=== PATIENT | female | born 1990 | race Caucasian/White ===

== ENCOUNTER 2019-03-17 14:52 | Inpatient (IN) | payer BC, OTHER ==
[2019-03-17] MEDS ORDERED: ACETAMINOPHEN 1000 MG/100 ML VIAL (NON FORMULARY) IVPB ONE (15:22)
[2019-03-17] MEDS ORDERED: LACTATED RINGERS SOLUTION 1000 ML INFUS.BAG IV ONE (15:22)
--- NOTE | 2019-03-17 15:24 | PDOC ---
Documentation entered by Wilmer Simon SCRIBE, acting as scribe for Kelley Nicholas DO. Kelley Nicholas DO: This documentation has been prepared by the Alfred guy Daniel, SCRIBE, under my direction and personally reviewed by me in its entirety. I confirm that the documentation accurately reflects all work, treatment, procedures, and medical decision making performed by me. History of Present Illness - General Chief Complaint: Syncope/Near Syncope Stated Complaint: SYNCOPE, LAC TO NOSE History Source: Patient Exam Limitations: No Limitations - History of Present Illness Initial Comments: 03/17/19 15:33 The patient is a 28 year old female with a past medical history of GERD here today for evaluation of a syncopal episode. 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 She reports waking up around 1 AM today and had the urge to defecate but states that there was very little diarrhea this time. She reports standing up to get out of the bathroom and the next thing she remembers is waking up on the ground. She notes a laceration to her nose, left knee pain that is worse with walking, and biting her lip. Patient attributes her diarrhea to almond milk that is past its expiration date and also notes some abdominal cramping. Patient denies headache, lightheadedness. Denies fever, chills. Denies chest pain, shortness of breath. Denies nausea, vomiting. Allergies: NKA PCP: Molly Cedillo Past History - Past Medical History Allergies/Adverse Reactions: Allergies Allergy/AdvReac Type Severity Reaction Status Date / Time No Known Allergies Allergy Verified 03/17/19 15:03 Home Medications: Ambulatory Orders Famotidine [Pepcid -] 40 mg PO DAILY 03/17/19 - Immunization History Immunization Up to Date: Yes - Psycho Social/Smoking Cessation Hx Smoking Status: No Smoking History: Never smoked Have you smoked in the past 12 months: No Number of Cigarettes Smoked Daily: 0 Hx Alcohol Use: No Drug/Substance Use Hx: No Substance Use Type: None Hx Substance Use Treatment: No Review of Systems - Review of Systems Able to Perform ROS?: Yes Comments:: 03/17/19 15:33 GENERAL/CONSTITUTIONAL: No fever or chills. No weakness. HEAD, EYES, EARS, NOSE AND THROAT: No change in vision. No ear pain or discharge. No sore throat. GASTROINTESTINAL: No nausea, vomiting, diarrhea or constipation. GENITOURINARY: No dysuria, frequency, or change in urination. CARDIOVASCULAR: No chest pain or shortness of breath. RESPIRATORY: No cough, wheezing, or hemoptysis. MUSCULOSKELETAL: +left knee pain. No muscle swelling or pain. No neck or back pain. SKIN: +laceration to nose. No rash NEUROLOGIC: No headache, vertigo, loss of consciousness, or change in strength/ sensation. ENDOCRINE: No increased thirst. No abnormal weight change. HEMATOLOGIC/LYMPHATIC: No anemia, easy bleeding, or history of blood clots. ALLERGIC/IMMUNOLOGIC: No hives or skin allergy. *Physical Exam - Vital Signs Last Vital Signs Temp Pulse Resp BP Pulse Ox 97.8 F 98 H 18 122/77 100 03/17/19 14:52 03/17/19 14:52 03/17/19 14:52 03/17/19 14:52 03/17/19 14:52 - Physical Exam 03/17/19 15:34 Constitutional: Awake, alert, oriented. No acute distress. Head: Normocephalic. Atraumatic Eyes: PERRL. EOMI. Conjunctivae are not pale. ENT: Mucous membranes are moist and intact. Posterior pharynx without exudates or erythema. Uvula midline. Neck: Supple. Full ROM. No lymphadenopathy. Cardiovascular: +tachycardia. Regular rhythm. S1, S2 regular. Distal pulses are 2+ and symmetric. Pulmonary/Chest: No evidence of respiratory distress. Clear to auscultation bilaterally No wheezing, rales or rhonchi. Abdominal: Soft and non-distended. There is no tenderness. No rebound, guarding or rigidity. No organomegaly. No palpable masses. Good bowel sounds. Back: No CVA tenderness. Musculoskeletal: No edema. No cyanosis. No clubbing. Full range of motion in all extremities. Nocalf tenderness. Radial/pedal pulses are intact and 2+ bilaterally Skin: +jagged less than 1 cm laceration to the nose. Skin is warm and dry. No petechiae. No purpura. Neurological: Alert and oriented to person, place, and time. Cranial nerves II -XII are grossly intact. Normal speech. Strength is grossly symmetric. No sensory deficits. Psychiatric: Good eye contact. Normal interaction, affect and behavior. Procedures - Laceration/Wound Repair Anterior Nose Wound Length: to 2.5 cm Wound Explored: clean Wound's Depth, Shape: superficial Irrigated w/ Saline: Yes Wound Repaired With: Dermabond Sterile Dressing Applied: Yes Progress: 03/17/19 16:22 pt tolerated the procedure well Heart Score/ECG Review - ECG Intrepretation Comment:: 03/17/19 15:23 sinus at 97, nl axis, nl interval, no acute st/t wave findings ED Treatment Course - LABORATORY CBC & Chemistry Diagram: 03/17/19 15:23 03/17/19 15:23 - RADIOLOGY Radiology Studies Ordered: Category Date Time Status HEAD CT WITHOUT CONTRAST [CT] Stat CT Scan 03/17/19 15:21 Ordered CHEST PA & LAT [RAD] Stat Radiology 03/17/19 15:21 Ordered Medical Decision Making - Medical Decision Making 03/17/19 15:35 a/p: 28yo female with a syncopal episode resulting in a nasal lac -pt states diarrhea and abd cramping after drinking a protein/almond milk smoothie overnight and a salad -syncope after getting up from the toilet -nasal lac - no active bleeding -pt tachy and + orthostatic vs and symptomatic with standing -will send labs, head ct, lac repair with dermabond -will monitor on tele, ekg -ivf hydration -tetanus utd 03/17/19 16:23 upreg neg 03/17/19 17:54 pt with orthostatic hypotension pt with rhabdo states she did her legs at the gym a few days ago pt with syncope and closed head injury microblog sent to [facility] for admission re-eval: pt states feeling better still with mild tachy at 107 bp stable ivf hydration running will admit for further eval 03/17/19 18:35 case discussed with Mayela Dorantes who accepts pt to service Discharge - Discharge Information Problems reviewed: Yes Clinical Impression/Diagnosis: Rhabdomyolysis, Syncope, Nasal laceration, Closed head injury, Dehydration Condition: Guarded - Admission Yes - Follow up/Referral Referrals: Molly Cedillo MD [Primary Care Provider] - - Patient Discharge Instructions - Post Discharge Activity
[2019-03-17] MEDS ORDERED: SODIUM CHLORIDE 0.9% 1000 ML INFUS.BAG IV ONE ×2 (15:34→17:54)
[2019-03-17] MEDS ORDERED: ACETAMINOPHEN INJECTION 100 ML IVPB ONE (15:34)
[2019-03-17 15:49] LABS: HEMATOCRIT 42.1 % (32.4-45.2); HEMOGLOBIN 13.9 GM/dl (10.7-15.3); MCH 29.1 pg (25.7-33.7); MEAN CELL VOLUME 88.2 fl (80-96); MEAN PLT VOLUME 8.9 fl (7.5-11.1); PLATELET COUNT 192 K/MM3 (134-434); RBC 4.77 M/mm3 (3.60-5.2); RDW 12.3 % (11.6-15.6); WHITE BLOOD COUNT 11.1 K/mm3 (4.0-10.8)
[2019-03-17 16:35] LABS: ALBUMIN 4.7 g/dl (3.4-5.0); BILIRUBIN,TOTAL 0.9 mg/dl (0.2-1); CALCIUM 9.3 mg/dl (8.5-10); CREATININE 0.7 mg/dl (0.55-1.3); MAGNESIUM 1.7 mg/dL (1.8-2.4); TOT PROT 7.8 g/dl (6.4-8.2)
[2019-03-17] MEDS ORDERED: MAGNESIUM SULF 50% (8.12 MEQ/2 ML-1 GM VIAL) IVPB ONE ×2 (19:09→23:25)
[2019-03-17] MEDS ORDERED: MAGNESIUM 1GM/D5W - 1 GM/100 ML IVPB IVPB ONE (19:14)
[2019-03-17] MEDS ORDERED: SODIUM CHLORIDE 1,000 ML IV SCH (19:15)
[2019-03-17 19:18] LABS: PLATELET ESTIMATE ADEQUATE
[2019-03-17 22:28] VITALS: BMI 25.7
--- NOTE | 2019-03-17 23:09 | HP ---
CHIEF COMPLAINT: Syncope PCP: Dr. Molly Cedillo HISTORY OF PRESENT ILLNESS: 28 year-old female with a PMH significant for GERD presented to the ED following a syncopal episode. 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 Within about 30 minutes she had an upset stomach and cramping. She had several episodes of diarrhea. She went to sleep and awoke having the need to have a BM. She stood up from the toilet and the next thing she remembered was waking up on the floor. She had small lacerations to her nose and lip and there was blood pooled on the floor. She thinks she lost consciousness for several minutes. Three days ago patient did a vigorous leg workout at the gym after a long period of not exercising. 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[employer]; to [employer], no children Smoking: never Alcohol: no Drugs: no Family history: sister Type I IDDM, father and mother a&w Allergies No Known Allergies Allergy (Verified 03/17/19 15:03) HOME MEDICATIONS: Home Medications Medication Instructions Recorded Famotidine [Pepcid -] 40 mg PO DAILY 03/17/19 REVIEW OF SYSTEMS CONSTITUTIONAL: Absent: fever, chills, diaphoresis, generalized weakness, malaise, loss of appetite, weight change HEENT: Absent: rhinorrhea, nasal congestion, throat pain, throat swelling, difficulty swallowing, mouth swelling, ear pain, eye pain, visual changes CARDIOVASCULAR: +syncope Absent: chest pain, palpitations, irregular heart rate, lightheadedness, peripheral edema RESPIRATORY: Absent: cough, shortness of breath, dyspnea with exertion, orthopnea, wheezing, stridor, hemoptysis GASTROINTESTINAL: +abdominal cramping, diarrhea Absent: abdominal distension, nausea, vomiting, constipation, melena, hematochezia GENITOURINARY: Absent: dysuria, frequency, urgency, hesitancy, hematuria, flank pain, genital pain MUSCULOSKELETAL: Absent: myalgia, arthralgia, joint swelling, back pain, neck pain SKIN: Absent: rash, itching, pallor HEMATOLOGIC/IMMUNOLOGIC: Absent: easy bleeding, easy bruising, lymphadenopathy, frequent infections ENDOCRINE: Absent: unexplained weight gain, unexplained weight loss, heat intolerance, cold intolerance NEUROLOGIC: Absent: headache, focal weakness or paresthesias, dizziness, unsteady gait, seizure, mental status changes, bladder or bowel incontinence PSYCHIATRIC: Absent: anxiety, depression, suicidal or homicidal ideation, hallucinations. PHYSICAL EXAMINATION Vital Signs - 24 hr 03/17/19 03/17/19 03/17/19 14:52 15:39 18:58 Temperature 97.8 F Pulse Rate 98 H Pulse Rate [ 79 Left Apical] Pulse Rate [ 145 H Left side Standing] Pulse Rate [ 115 H Left side Supine] Respiratory 18 16 Rate Blood Pressure 122/77 Blood Pressure 122/89 [Left side Standing] Blood Pressure 117/82 [Left side Supine] Blood Pressure 117/73 [Right Arm] O2 Sat by Pulse 100 98 Oximetry (%) 03/17/19 03/17/19 21:00 22:07 Temperature 98.6 F Pulse Rate 101 H Pulse Rate [ 89 Left Apical] Pulse Rate [ Left side Standing] Pulse Rate [ Left side Supine] Respiratory 18 17 Rate Blood Pressure 114/71 Blood Pressure [Left side Standing] Blood Pressure [Left side Supine] Blood Pressure 101/68 [Right Arm] O2 Sat by Pulse 99 98 Oximetry (%) GENERAL: Awake, alert, and fully oriented, in no acute distress. HEAD: Normal with no signs of trauma. EYES: Pupils equal, round and reactive to light, extraocular movements intact, sclera anicteric, conjunctiva clear. EARS, NOSE, THROAT: Ears normal, nares patent, oropharynx clear without exudates. Moist mucous membranes. LUNGS: Breath sounds equal, clear to auscultation bilaterally. No wheezes, and no crackles. No accessory muscle use. HEART: Regular rate and rhythm, normal S1 and S2 ABDOMEN: Soft, nontender, not distended MUSCULOSKELETAL: Normal range of motion at all joints. No bony deformities or tenderness. No CVA tenderness. UPPER EXTREMITIES: 2+ pulses, warm, well-perfused. No cyanosis. No clubbing. No peripheral edema. LOWER EXTREMITIES: 2+ pulses, warm, well-perfused. No calf tenderness. No peripheral edema. NEUROLOGICAL: Cranial nerves II-XII intact. Normal speech. Laboratory Results - last 24 hr 03/17/19 03/17/1903/17/19 15:23 15:23 15:23 WBC 11.1 H RBC 4.77 Hgb 13.9 Hct 42.1 MCV 88.2 MCH 29.1 MCHC 33.0 RDW 12.3 Plt Count 192 MPV 8.9 Absolute Neuts (auto) 10.2 Neutrophils % No Result Required. Neutrophils % (Manual) 97.0 H* Lymphocytes % No Result Required. Lymphocytes % (Manual) 3.0 L Platelet Estimate Adequate Sodium 137 Potassium 4.0 Chloride 100 Carbon Dioxide 26 Anion Gap 11 BUN 12.0 Creatinine 0.7 Est GFR (CKD-EPI)AfAm 134.75 Est GFR (CKD-EPI)NonAf 116.26 Random Glucose 114 H Calcium 9.3 Magnesium 1.7 L Total Bilirubin 0.9 AST 199 H ALT 65 H Alkaline Phosphatase 51 Creatine Kinase 21031 H Creatine Kinase Index 0.1 CK-MB (CK-2) 24.0 H Troponin I < 0.03 Total Protein 7.8 Albumin 4.7 Lipase Urine Color Urine Appearance Urine pH Urine Protein Urine Glucose (UA) Urine Ketones Urine Blood Urine Nitrite Urine Bilirubin Urine Urobilinogen Ur Leukocyte Esterase Urine RBC Urine WBC Urine Bacteria Urine HCG, Qual 03/17/19 03/17/19 03/17/19 15:30 15:30 15:30 WBC RBC Hgb Hct MCV MCH MCHC RDW Plt Count MPV Absolute Neuts (auto) Neutrophils % Neutrophils % (Manual) Lymphocytes % Lymphocytes % (Manual) Platelet Estimate Sodium Potassium Chloride Carbon Dioxide Anion Gap BUN Creatinine Est GFR (CKD-EPI)AfAm Est GFR (CKD-EPI)NonAf Random Glucose Calcium Magnesium Total Bilirubin AST ALT Alkaline Phosphatase Creatine Kinase Creatine Kinase Index CK-MB (CK-2) Troponin I Total Protein Albumin Lipase 160 Urine Color Yellow Urine Appearance Clear Urine pH >= 9.0 H Urine Protein 1+ H Urine Glucose (UA) Negative Urine Ketones 3+ H Urine Blood Trace-intact Urine Nitrite Negative Urine Bilirubin Negative Urine Urobilinogen 0.2 Ur Leukocyte Esterase Negative Urine RBC 2-5 Urine WBC 0-2 Urine Bacteria Few Urine HCG, Qual Negative ASSESSMENT/PLAN: 28 year-old female with a PMH significant for GERD. Admitted for a syncopal episode and on admission found to have rhabdomyolysis. Rhabdomyolysis --multifactorial etiology: low PO intake, vigourous exercise, GI losses after drinking spoiled almond milk --CPK 12,660 --resuscitated 3L in ED, continue NS@250mL/hr --strict I&Os --monitor renal function closely --renal consult placed GERD --Pepcid FEN Fluids: NS@250mL/hr Electrolytes: replete as indicated Nutrition: regular DVT prophylaxis: TEDs, oob, ambulation Dispo: continues to require inpatient care. Full code. Visit type - Emergency Visit Emergency Visit: Yes ED Registration Date: 03/17/19 Care time: The patient presented to the Emergency Department on the above date and was hospitalized for further evaluation of their emergent condition. - New Patient This patient is new to me today: Yes Date on this admission: 03/18/19 - Critical Care Critical Care patient: No
[2019-03-17] MEDS: ACETAMINOPHEN 325 MG TABLET (FP) PO PRN (23:31)
[2019-03-18] MEDS ORDERED: MAGNESIUM SULF 50% (8.12 MEQ/2 ML-1 GM VIAL) ONE (00:19)
[2019-03-18] MEDS: ACETAMINOPHEN 325 MG TABLET (FP) PO PRN ×2 (05:23→18:01)
--- NOTE | 2019-03-18 07:17 | PN ---
Physical Exam: SUBJECTIVE: Patient seen and examined OBJECTIVE: Vital Signs Period Temp Pulse Resp BP Sys/Bishop Pulse Ox Last 24 Hr 97.8 F-100.6 F 79-145 16-18 101-122/68-89 97-100 GENERAL: The patient is awake, alert, and fully oriented, in no acute distress. LUNGS: Breath sounds equal, clear to auscultation bilaterally, no wheezes, no crackles, no accessory muscle use. HEART: Regular rate and rhythm, S1, S2 without murmur, rub or gallop. ABDOMEN: Soft, nontender, nondistended EXTREMITIES: 2+ pulses, warm, well-perfused, no edema. NEUROLOGICAL: Cranial nerves II through XII grossly intact. Normal speech Laboratory Results - last 24 hr 03/17/19 03/17/19 03/17/19 15:23 15:23 15:23 WBC 11.1 H RBC 4.77 Hgb 13.9 Hct 42.1 MCV 88.2 MCH 29.1 MCHC 33.0 RDW 12.3 Plt Count 192 MPV 8.9 Absolute Neuts (auto) 10.2 Neutrophils % No Result Required. Neutrophils % (Manual) 97.0 H* Lymphocytes % No Result Required. Lymphocytes % (Manual) 3.0 L Platelet Estimate Adequate Sodium 137 Potassium 4.0 Chloride 100 Carbon Dioxide 26 Anion Gap 11 BUN 12.0 Creatinine 0.7 Est GFR (CKD-EPI)AfAm 134.75 Est GFR (CKD-EPI)NonAf 116.26 Random Glucose 114 H Calcium 9.3 Magnesium 1.7 L Total Bilirubin 0.9 AST 199 H ALT 65 H Alkaline Phosphatase 51 Creatine Kinase 16583 H Creatine Kinase Index 0.1 CK-MB (CK-2) 24.0 H Troponin I < 0.03 Total Protein 7.8 Albumin 4.7 Lipase Urine Color Urine Appearance Urine pH Urine Protein Urine Glucose (UA) Urine Ketones Urine Blood Urine Nitrite Urine Bilirubin Urine Urobilinogen Ur Leukocyte Esterase Urine RBC Urine WBC Urine Bacteria Urine HCG, Qual 03/17/19 03/17/19 03/17/19 15:30 15:30 15:30 WBC RBC Hgb Hct MCV MCH MCHC RDW Plt Count MPV Absolute Neuts (auto) Neutrophils % Neutrophils % (Manual) Lymphocytes % Lymphocytes % (Manual) Platelet Estimate Sodium Potassium Chloride Carbon Dioxide Anion Gap BUN Creatinine Est GFR (CKD-EPI)AfAm Est GFR (CKD-EPI)NonAf Random Glucose Calcium Magnesium Total Bilirubin AST ALT Alkaline Phosphatase Creatine Kinase Creatine Kinase Index CK-MB (CK-2) Troponin I Total Protein Albumin Lipase 160 Urine Color Yellow Urine Appearance Clear Urine pH >= 9.0 H Urine Protein 1+ H Urine Glucose (UA) Negative Urine Ketones 3+ H Urine Blood Trace-intact Urine Nitrite Negative Urine Bilirubin Negative Urine Urobilinogen 0.2 Ur Leukocyte Esterase Negative Urine RBC 2-5 Urine WBC 0-2 Urine Bacteria Few Urine HCG, Qual Negative Active Medications Generic Name Dose Route Start Last Admin Trade Name Freq PRN Reason Stop Dose Admin Acetaminophen 650 mg 03/17/19 23:15 03/18/19 05:23 Tylenol - PO 650 mg Q6H PRN Administration HEADACHE Famotidine 40 mg 03/18/19 10:00 Pepcid - PO DAILY [facility] Sodium Chloride 1,000 mls @ 250 mls/hr 03/17/19 19:15 Normal Saline - IV ASDIR MELY ASSESSMENT/PLAN: 28 year-old female with a PMH significant for GERD. Admitted for a syncopal episode and on admission found to have rhabdomyolysis. Rhabdomyolysis --multifactorial etiology: low PO intake, vigourous exercise, GI losses after drinking spoiled almond milk --CPK trending down 10,340 (<--12,660 on admission) --continue IV fluids --strict I&Os --monitor renal function closely --renal following GERD --Pepcid FEN Fluids: NS@250mL/hr Electrolytes: replete as indicated Nutrition: regular DVT prophylaxis: TEDs, oob, ambulation Dispo: continues to require inpatient care. Full code. Visit type - Emergency Visit Emergency Visit: Yes ED Registration Date: 03/17/19 Care time: The patient presented to the Emergency Department on the above date and was hospitalized for further evaluation of their emergent condition. - New Patient This patient is new to me today: No - Critical Care Critical Care patient: No
[2019-03-18 08:12] LABS: BASO % 0.1 % (0-2.0); EOS % 0.5 % (0-4.5); HEMATOCRIT 36.7 % (32.4-45.2); HEMOGLOBIN 12.2 GM/dl (10.7-15.3); LYMPH % 15.1 % (8-40); MCH 29.3 pg (25.7-33.7); MCHC 33.2 g/dl (32.0-36.0); MEAN PLT VOLUME 9.2 fl (7.5-11.1); NEUT % 77.3 % (42.8-82.8); PLATELET COUNT 164 K/MM3 (134-434); RBC 4.16 M/mm3 (3.60-5.2); RDW 11.8 % (11.6-15.6)
--- NOTE | 2019-03-18 09:08 | EKG ---
Test Reason : Blood Pressure : / mmHG Vent. Rate : 097 BPM Atrial Rate : 097 BPM P-R Int : 180 ms QRS Dur : 080 ms QT Int : 352 ms P-R-T Axes : 054 046 036 degrees QTc Int : 447 ms NORMAL SINUS RHYTHM POSSIBLE LEFT ATRIAL ENLARGEMENT BORDERLINE ECG WHEN COMPARED WITH ECG OF 04-DEC-2012 09:40, NO SIGNIFICANT CHANGE WAS FOUND Confirmed by Keenan Orellana MD ([id number]) on 03/18/2019 9:07:34 AM Referred By: DR LUNA Confirmed By:Keenan Orellana MD
[2019-03-18 09:14] LABS: ALBUMIN 3.4 g/dl (3.4-5.0); BILIRUBIN,TOTAL 0.5 mg/dl (0.2-1); CALCIUM 7.6 mg/dl (8.5-10); CREATININE 0.6 mg/dl (0.55-1.3); PHOSPHOROUS 2.4 mg/dl (2.5-4.9); POTASSIUM 3.6 mmol/L (3.5-5.1)
[2019-03-18] MEDS: FAMOTIDINE 20 MG TABLET PO SCH (10:03)
--- NOTE | 2019-03-18 15:12 | CONSULT ---
Consult Consult Specialty:: Nephrology Reason for Consultation:: rhabdo - History of Present Illness Chief Complaint: syncope History of Present Illness: Pt is a 28 year old female with pmhx of gerd who presents after a syncopal episode. I was called to evaluate her for rhabdo. She had taken a several month break off of the GYM. She went to work out and did intense leg exercises including weights. She also did upper body. 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 She also had several episods of diarrhea. She complained of muscle pain that has since resolved. She denies chest pain or shortness of breath. She denies hematuria. - History Source History Provided By: Patient - Past Medical History SUPERVISOR TYPE DISK QUALITY CONTROL: Yes: Syncope Gastrointestinal: Yes: GERD ...LMP: 03/14/13 ...: No - Past Surgical History Additional Surgical History: breast augmentation - Alcohol/Substance Use Hx Alcohol Use: No - Smoking History Smoking history: Never smoked Have you smoked in the past 12 months: No Aproximately how many cigarettes per day: 0 Home Medications - Allergies Allergies/Adverse Reactions: Allergies Allergy/AdvReac Type Severity Reaction Status Date / Time No Known Allergies Allergy Verified 03/17/19 15:03 - Home Medications Home Medications: Ambulatory Orders Famotidine [Pepcid -] 40 mg PO DAILY 03/17/19 Family Medical History Family History: Denies Review of Systems - Review of Systems Constitutional: reports: Malaise Eyes: reports: No Symptoms HENT: reports: No Symptoms Neck: reports: No Symptoms Cardiovascular: reports: No Symptoms Respiratory: reports: No Symptoms Gastrointestinal: reports: Diarrhea Genitourinary: reports: No Symptoms Musculoskeletal: reports: Muscle Pain Integumentary: reports: No Symptoms Endocrine: reports: No Symptoms Hematology/Lymphatic: reports: No Symptoms Psychiatric: reports: No Symptoms Physical Exam Vital Signs: Vital Signs Temperature 99.0 F 03/18/19 10:00 Pulse Rate 96 H 03/18/19 10:00 Respiratory Rate 03/18/19 10:00 Blood Pressure 108/68 03/18/19 10:00 O2 Sat by Pulse Oximetry (%) 98 03/18/19 10:00 Constitutional: Yes: Calm Eyes: Yes: Conjunctiva Clear HENT: Yes: Atraumatic Neck: Yes: Supple Cardiovascular: Yes: S1, S2 Respiratory: Yes: CTA Bilaterally Gastrointestinal: Yes: Soft Renal/: Yes: WNL Musculoskeletal: Yes: WNL Edema: No Integumentary: Yes: WNL Neurological: Yes: Oriented Psychiatric: Yes: Oriented Labs: CBC, BMP 03/18/19 07:28 03/18/19 07:28 Laboratory Tests 03/17/19 03/17/19 03/17/19 15:23 15:23 15:30 WBC 11.1 H Hgb 13.9 Plt Count 192 Potassium BUN 12.0 Creatinine Creatine Kinase 16843 H Urine Protein Urine Blood Urine HCG, Qual Negative 03/17/19 03/18/19 03/18/19 15:30 07:07 07:28 WBC 6.0 Hgb 12.2 Plt Count 164 Potassium BUN Creatinine Creatine Kinase 59184 H Urine Protein 1+ H Urine Blood Trace-intact Urine HCG, Qual 03/18/19 07:28 WBC Hgb Plt Count Potassium 3.6 BUN 6.0 L Creatinine 0.6 Creatine Kinase Urine Protein Urine Blood Urine HCG, Qual Imaging - Results Cat Scan: Report Reviewed Problem List - Problems (1) Rhabdomyolysis Code(s): M62.82 - RHABDOMYOLYSIS (2) Syncope Code(s): R55 - SYNCOPE AND COLLAPSE Assessment/Plan Current Medications Generic Name Dose Route Start Last Admin Trade Name Freq PRN Reason Stop Dose Admin Acetaminophen 650 mg 03/17/19 23:15 03/18/19 05:23 Tylenol - PO 650 mg Q6H PRN Administration HEADACHE Famotidine 40 mg 03/18/19 10:00 03/18/19 10:03 Pepcid - PO 40 mg DAILY MELY Administration Sodium Chloride 1,000 mls @ 250 mls/hr 03/17/19 19:15 Normal Saline - IV ASDIR MELY Impression 1. rhabdo 2. symcope 3. gerd 4. diarrhea Plan - cont fluids - cpk improving - repeat in am - repeat ua - cont saline
[2019-03-19] MEDS: ACETAMINOPHEN 325 MG TABLET (FP) PO PRN ×4 (01:04→22:50)
[2019-03-19 08:26] LABS: BILIRUBIN,TOTAL 0.5 mg/dl (0.2-1); CALCIUM 7.2 mg/dl (8.5-10); CREATININE 0.5 mg/dl (0.55-1.3); MAGNESIUM 1.6 mg/dL (1.8-2.4); TOT PROT 5.3 g/dl (6.4-8.2)
[2019-03-19] MEDS: FAMOTIDINE 20 MG TABLET PO SCH (09:19)
[2019-03-19] MEDS ORDERED: SODIUM CHLORIDE 1,000 ML IV SCH (10:34)
[2019-03-19] MEDS: SODIUM CHLORIDE 1,000 ML IV SCH (10:40)
--- NOTE | 2019-03-19 10:41 | PN ---
Progress Note, Physician History of Present Illness: Pt seen and examined at bedside. She is awake and alert. She denies shortness of breath. She still has diarrhea. - Current Medication List Current Medications: Active Medications Acetaminophen (Tylenol -) 650 mg PO Q6H PRN PRN Reason: HEADACHE Last Admin: 03/19/19 01:04 Dose: 650 mg Famotidine (Pepcid -) 40 mg PO DAILY MELY Last Admin: 03/19/19 09:19 Dose: 40 mg Sodium Chloride (Normal Saline -) 1,000 mls @ 125 mls/hr IV ASDIR MELY Potassium Chloride (K-Dur -) 40 meq PO ONCE ONE Stop: 03/19/19 10:34 - Objective Vital Signs: Vital Signs Temperature 98.7 F 03/19/19 06:00 Pulse Rate 81 03/19/19 06:00 Respiratory Rate 18 03/19/19 08:02 Blood Pressure 108/69 03/19/19 06:00 O2 Sat by Pulse Oximetry (%) 98 03/19/19 08:02 Constitutional: Yes: Calm Cardiovascular: Yes: S1, S2 Respiratory: Yes: CTA Bilaterally Gastrointestinal: Yes: Soft Genitourinary: Yes: WNL Musculoskeletal: Yes: WNL Edema: No Neurological: Yes: Oriented Psychiatric: Yes: Oriented Labs: CBC, BMP 03/18/19 07:28 03/19/19 07:09 Problem List - Problems (1) Rhabdomyolysis Code(s): M62.82 - RHABDOMYOLYSIS (2) Syncope Code(s): R55 - SYNCOPE AND COLLAPSE Assessment/Plan Current Medications Generic Name Dose Route Start Last Admin Trade Name Brook PRN Reason Stop Dose Admin Acetaminophen 650 mg 03/17/19 23:15 03/19/19 01:04 Tylenol - PO 650 mg Q6H PRN Administration HEADACHE Famotidine 40 mg 03/18/19 10:00 03/19/19 09:19 Pepcid - PO 40 mg DAILY MELY Administration Sodium Chloride 1,000 mls @ 125 mls/hr 03/19/19 10:34 Normal Saline - IV ASDIR MELY Potassium Chloride 40 meq 03/19/19 10:33 K-Dur - PO 03/19/19 10:34 ONCE ONE Impression 1. rhabdo 2. syncope 3. gerd 4. diarrhea Plan - cont fluids - cpk improving - check stool for c.diff - replace potassium - replace lytes
[2019-03-19] MEDS ORDERED: POTASSIUM CHLORIDE TABS 20 MEQ TABLET.ER (FP) PO ONE ×2 (11:00→20:00)
[2019-03-19] MEDS ORDERED: MAGNESIUM SULF 50% (8.12 MEQ/2 ML-1 GM VIAL) IVPB ONE (11:02)
[2019-03-19] MEDS ORDERED: MAGNESIUM SULFATE IN WATER 2 GM/50 ML IVPB IVPB ONE (11:30)
[2019-03-19] MEDS: NAPH,MB-DB/K PH,MBDB POWDER PACKET PO SCH ×2 (14:08→21:53)
[2019-03-19 18:05] LABS: EPITHELIAL CELLS FEW /hpf
--- NOTE | 2019-03-19 21:03 | PN ---
Physical Exam: SUBJECTIVE: Patient seen and examined. Ambulating frequently in the hallways. Diarrhea is slightly better. OBJECTIVE: Vital Signs Period Temp Pulse Resp BP Sys/Bishop Pulse Ox Last 24 Hr 97.6 F-100.8 F 74-108 16-18 106-110/68-76 95-98 GENERAL: The patient is awake, alert, and fully oriented, in no acute distress. LUNGS: Breath sounds equal, clear to auscultation bilaterally, no wheezes, no crackles, no accessory muscle use. HEART: Regular rate and rhythm, S1, S2 without murmur, rub or gallop. ABDOMEN: Soft, nontender, nondistended EXTREMITIES: 2+ pulses, warm, well-perfused, no edema. NEUROLOGICAL: Cranial nerves II through XII grossly intact. Normal speech, steady gait Laboratory Results - last 24 hr 03/19/19 03/19/19 07:09 17:20 Sodium 134 L Potassium 3.0 L Chloride 111 H Carbon Dioxide 20 L Anion Gap 3 L BUN 3.0 L Creatinine 0.5 L Est GFR (CKD-EPI)AfAm 150.52 Est GFR (CKD-EPI)NonAf 129.87 Random Glucose 77 Calcium 7.2 L Phosphorus 2.0 L Magnesium 1.6 L Total Bilirubin 0.5 AST 126 H ALT 60 Alkaline Phosphatase 34 L Creatine Kinase 7777 H Creatine Kinase Index 0.0 CK-MB (CK-2) 2.7 Total Protein 5.3 L Albumin 3.0 L Urine Color Yellow Urine Appearance Clear Urine pH 7.0 Urine Protein Negative Urine Glucose (UA) Negative Urine Ketones Negative Urine Blood Trace-intact Urine Nitrite Negative Urine Bilirubin Negative Urine Urobilinogen 0.2 Ur Leukocyte Esterase Negative Urine RBC 5-10 Urine WBC 0-2 Ur Transition Epith Cell Few Active Medications Generic Name Dose Route Start Last Admin Trade Name Freq PRN Reason Stop Dose Admin Acetaminophen 650 mg 03/17/19 23:15 03/19/19 17:48 Tylenol - PO 650 mg Q6H PRN Administration HEADACHE Famotidine 40 mg 03/18/19 10:00 03/19/19 09:19 Pepcid - PO 40 mg DAILY MELY Administration Sodium Chloride 1,000 mls @ 150 mls/hr 03/19/19 10:41 03/19/19 10:40 Normal Saline - IV 150 mls/hr ASDIR MEYL Administration Potassium Phos/Sodium Phos 1 packet 12/11/19 14:00 03/19/19 14:08 Phos-Nak Packet - PO 1 packet TID MELY Administration ASSESSMENT/PLAN: 28 year-old female with a PMH significant for GERD. Admitted for a syncopal episode and on admission found to have rhabdomyolysis. Rhabdomyolysis --multifactorial etiology: low PO intake, vigourous exercise, GI losses after drinking spoiled almond milk --CPK trending down 7777 (<--12,660 on admission) --continue IV fluids --strict I&Os --dawna; fimctopm remains stable, monitor closely --renal following Hypokalemia Hypophosphatemia --repelte GERD --Pepcid FEN Fluids: NS@150mL/hr Electrolytes: replete as indicated Nutrition: regular DVT prophylaxis: TEDs, oob, ambulation Dispo: continues to require inpatient care. Full code. Visit type - Emergency Visit Emergency Visit: Yes ED Registration Date: 03/17/19 Care time: The patient presented to the Emergency Department on the above date and was hospitalized for further evaluation of their emergent condition. - New Patient This patient is new to me today: No - Critical Care Critical Care patient: No
[2019-03-20] MEDS: ACETAMINOPHEN 325 MG TABLET (FP) PO PRN (05:55)
[2019-03-20] MEDS: NAPH,MB-DB/K PH,MBDB POWDER PACKET PO SCH ×3 (05:55→21:20)
[2019-03-20] MEDS: FAMOTIDINE 20 MG TABLET PO SCH (09:03)
[2019-03-20 09:26] LABS: MAGNESIUM 1.9 mg/dL (1.8-2.4); PHOSPHOROUS 2.6 mg/dl (2.5-4.9)
[2019-03-20] MEDS: SODIUM CHLORIDE 1,000 ML IV SCH (13:12)
[2019-03-20 14:18] LABS: ALBUMIN 3.3 g/dl (3.4-5.0); ALK PHOS 35 U/L (45-117); ANION GAP 7 MMOL/L (8-16); BILIRUBIN,TOTAL 0.2 mg/dl (0.2-1); CALCIUM 8.2 mg/dl (8.5-10); CHLORIDE 108 mmol/L (98-107); CO2 22 mmol/L (21-32); CREATININE 0.5 mg/dl (0.55-1.3); GLUCOSE,RANDOM 83 mg/dl (74-106); POTASSIUM 3.9 mmol/L (3.5-5.1); SGOT/AST 93 U/L (15-37); SGPT/ALT 70 U/L (13-61); SODIUM 137 mmol/L (136-145); TOT PROT 5.8 g/dl (6.4-8.2)
[2019-03-20 14:56] LABS: BLOOD UREA NITROGEN < 5.0 mg/dl (7-18)
--- NOTE | 2019-03-20 16:41 | PN ---
Progress Note, Physician History of Present Illness: Pt seen and examined at bedside. She is awake and alert. She says that the diarrhea is improved. - Current Medication List Current Medications: Active Medications Acetaminophen (Tylenol -) 650 mg PO Q6H PRN PRN Reason: HEADACHE Last Admin: 03/20/19 05:55 Dose: 650 mg Famotidine (Pepcid -) 40 mg PO DAILY MELY Last Admin: 03/20/19 09:03 Dose: 40 mg Sodium Chloride (Normal Saline -) 1,000 mls @ 150 mls/hr IV ASDIR MELY Last Admin: 03/20/19 13:12 Dose: 150 mls/hr Potassium Phos/Sodium Phos (Phos-Nak Packet -) 1 packet PO TID MELY Last Admin: 03/20/19 13:12 Dose: 1 packet - Objective Vital Signs: Vital Signs Temperature 97.7 F 03/20/19 14:00 Pulse Rate 73 03/20/19 14:00 Respiratory Rate 20 03/20/19 14:00 Blood Pressure 116/73 03/20/19 14:00 O2 Sat by Pulse Oximetry (%) 99 03/20/19 08:45 Constitutional: Yes: Calm Eyes: Yes: Conjunctiva Clear HENT: Yes: Atraumatic Neck: Yes: Supple Cardiovascular: Yes: S1, S2 Respiratory: Yes: CTA Bilaterally Gastrointestinal: Yes: Soft Genitourinary: Yes: WNL Musculoskeletal: Yes: WNL Edema: No Integumentary: Yes: WNL Neurological: Yes: Oriented Psychiatric: Yes: Oriented Labs: CBC, BMP 03/18/19 07:28 03/20/19 06:30 Problem List - Problems (1) Rhabdomyolysis Code(s): M62.82 - RHABDOMYOLYSIS (2) Syncope Code(s): R55 - SYNCOPE AND COLLAPSE Assessment/Plan Current Medications Generic Name Dose Route Start Last Admin Trade Name Freq PRN Reason Stop Dose Admin Acetaminophen 650 mg 03/17/19 23:15 03/20/19 05:55 Tylenol - PO 650 mg Q6H PRN Administration HEADACHE Famotidine 40 mg 03/18/19 10:00 03/20/19 09:03 Pepcid - PO 40 mg DAILY MELY Administration Sodium Chloride 1,000 mls @ 150 mls/hr 03/19/19 10:41 03/20/19 13:12 Normal Saline - IV 150 mls/hr ASDIR MELY Administration Potassium Phos/Sodium Phos 1 packet 03/19/19 14:00 03/20/19 13:12 Phos-Nak Packet - PO 1 packet TID MELY Administration Laboratory Tests 03/19/19 03/20/19 17:20 06:30 Creatine Kinase 4005 H Urine Protein Negative Urine Ketones Negative Urine Blood Trace-intact Impression 1. rhabdo 2. syncope 3. gerd 4. diarrhea Plan - cont fluids - cpk improving - repeat labs in am - diarrhea resolved - appetite improved
--- NOTE | 2019-03-20 16:43 | PN ---
Physical Exam: SUBJECTIVE: Patient seen and examined. Ambulating frequently in the hallways with . No diarrhea 24 hours. OBJECTIVE: Vital Signs Period Temp Pulse Resp BP Sys/Bishop Pulse Ox Last 24 Hr 97.7 F-98.6 F 58-82 16-20 108-117/57-83 96-99 GENERAL: The patient is awake, alert, and fully oriented, in no acute distress. LUNGS: Breath sounds equal, clear to auscultation bilaterally, no wheezes, no crackles, no accessory muscle use. HEART: Regular rate and rhythm, S1, S2 without murmur, rub or gallop. ABDOMEN: Soft, nontender, nondistended EXTREMITIES: 2+ pulses, warm, well-perfused, no edema. NEUROLOGICAL: Cranial nerves II through XII grossly intact. Normal speech, steady gait Laboratory Results - last 24 hr 03/19/19 03/20/19 03/20/19 17:20 06:30 08:44 Sodium 137 Potassium 3.9 Chloride 108 H Carbon Dioxide 22 Anion Gap 7 L BUN < 5.0 L Creatinine 0.5 L Est GFR (CKD-EPI)AfAm 150.52 Est GFR (CKD-EPI)NonAf 129.87 Random Glucose 83 Calcium 8.2 L Phosphorus 2.6 Magnesium 1.9 Total Bilirubin 0.2 AST 93 H ALT 70 H Alkaline Phosphatase 35 L Creatine Kinase 4005 H Creatine Kinase Index 0.0 CK-MB (CK-2) 2.2 Total Protein 5.8 L Albumin 3.3 L Urine Color Yellow Urine Appearance Clear Urine pH 7.0 Urine Protein Negative Urine Glucose (UA) Negative Urine Ketones Negative Urine Blood Trace-intact Urine Nitrite Negative Urine Bilirubin Negative Urine Urobilinogen 0.2 Ur Leukocyte Esterase Negative Urine RBC 5-10 Urine WBC 0-2 Ur Transition Epith Cell Few Active Medications Generic Name Dose Route Start Last Admin Trade Name Freq PRN Reason Stop Dose Admin Acetaminophen 650 mg 03/17/19 23:15 03/20/19 05:55 Tylenol - PO 650 mg Q6H PRN Administration HEADACHE Famotidine 40 mg 03/18/19 10:00 03/20/19 09:03 Pepcid - PO 40 mg DAILY MELY Administration Sodium Chloride 1,000 mls @ 150 mls/hr 03/19/19 10:41 03/20/19 13:12 Normal Saline - IV 150 mls/hr ASDIR MELY Administration Potassium Phos/Sodium Phos 1 packet 03/19/19 14:00 03/20/19 13:12 Phos-Nak Packet - PO 1 packet TID MELY Administration ASSESSMENT/PLAN: 28 year-old female with a PMH significant for GERD. Admitted for a syncopal episode and on admission found to have rhabdomyolysis. Rhabdomyolysis --multifactorial etiology: low PO intake, vigourous exercise, GI losses after drinking spoiled almond milk --CPK trending down 4005 (<--12,660 on admission) --continue IV fluids --strict I&Os --renal function stable Hypomagnesemia --repelte GERD --Pepcid FEN Fluids: NS@150mL/hr Electrolytes: replete as indicated Nutrition: regular DVT prophylaxis: TEDs, oob, ambulation Dispo: continues to require inpatient care. Full code. Visit type - Emergency Visit Emergency Visit: Yes ED Registration Date: 03/17/19 Care time: The patient presented to the Emergency Department on the above date and was hospitalized for further evaluation of their emergent condition. - New Patient This patient is new to me today: No - Critical Care Critical Care patient: No
[2019-03-21] MEDS: NAPH,MB-DB/K PH,MBDB POWDER PACKET PO SCH ×2 (06:27→14:47)
[2019-03-21 08:44] LABS: ALBUMIN 3.5 g/dl (3.4-5.0); BILIRUBIN,TOTAL 0.5 mg/dl (0.2-1); CALCIUM 8.8 mg/dl (8.5-10); CREATININE 0.6 mg/dl (0.55-1.3); MAGNESIUM 1.7 mg/dL (1.8-2.4); PHOSPHOROUS 3.4 mg/dl (2.5-4.9); POTASSIUM 4.1 mmol/L (3.5-5.1); TOT PROT 6.2 g/dl (6.4-8.2)
[2019-03-21] MEDS: FAMOTIDINE 20 MG TABLET PO SCH (11:05)
[2019-03-21] MEDS ORDERED: MAGNESIUM SULF 50% (8.12 MEQ/2 ML-1 GM VIAL) IVPB ONE (11:22)
--- NOTE | 2019-03-21 11:22 | PN ---
Progress Note, Physician History of Present Illness: Pt seen and examined at bedside. She is awake and alert. She denies shortness of breath. - Current Medication List Current Medications: Active Medications Acetaminophen (Tylenol -) 650 mg PO Q6H PRN PRN Reason: HEADACHE Last Admin: 03/20/19 05:55 Dose: 650 mg Famotidine (Pepcid -) 40 mg PO DAILY MELY Last Admin: 03/21/19 11:05 Dose: 40 mg Sodium Chloride (Normal Saline -) 1,000 mls @ 150 mls/hr IV ASDIR MELY Last Admin: 03/20/19 13:12 Dose: 150 mls/hr Potassium Phos/Sodium Phos (Phos-Nak Packet -) 1 packet PO TID MELY Last Admin: 03/21/19 06:27 Dose: 1 packet - Objective Vital Signs: Vital Signs Temperature 98.0 F 03/21/19 06:00 Pulse Rate 81 03/21/19 06:00 Respiratory Rate 18 03/21/19 06:00 Blood Pressure 103/60 03/21/19 06:00 O2 Sat by Pulse Oximetry (%) 100 03/21/19 06:00 Constitutional: Yes: Calm Eyes: Yes: Conjunctiva Clear HENT: Yes: Atraumatic Neck: Yes: Supple Cardiovascular: Yes: S1, S2 Respiratory: Yes: CTA Bilaterally Gastrointestinal: Yes: Soft Genitourinary: Yes: WNL Musculoskeletal: Yes: WNL Edema: No Integumentary: Yes: WNL Neurological: Yes: Oriented Psychiatric: Yes: Oriented Labs: CBC, BMP 03/18/19 07:28 03/21/19 07:34 Problem List - Problems (1) Rhabdomyolysis Code(s): M62.82 - RHABDOMYOLYSIS (2) Syncope Code(s): R55 - SYNCOPE AND COLLAPSE Assessment/Plan Current Medications Generic Name Dose Route Start Last Admin Trade Name Freq PRN Reason Stop Dose Admin Acetaminophen 650 mg 03/17/19 23:15 03/20/19 05:55 Tylenol - PO 650 mg Q6H PRN Administration HEADACHE Famotidine 40 mg 03/18/19 10:00 03/21/19 11:05 Pepcid - PO 40 mg DAILY MELY Administration Sodium Chloride 1,000 mls @ 150 mls/hr 03/19/19 10:41 03/20/19 13:12 Normal Saline - IV 150 mls/hr ASDIR MELY Administration Potassium Phos/Sodium Phos 1 packet 03/19/19 14:00 03/21/19 06:27 Phos-Nak Packet - PO 1 packet TID MELY Administration Laboratory Tests 03/21/19 03/21/19 07:34 07:34 Potassium 4.1 Magnesium 1.7 L AST 59 H ALT 67 H Creatine Kinase 1735 H Impression 1. rhabdo 2. syncope 3. gerd 4. diarrhea Plan - replace mag - cpk improving - cont fluids for now - can come to office on Sunday to have cpk checked - diarrhea resolved
[2019-03-21] MEDS ORDERED: MAGNESIUM OXIDE 400 MG TABLET (FP) PO SCH (11:30)
[2019-03-21] MEDS ORDERED: MAGNESIUM SULFATE IN WATER 2 GM/50 ML IVPB IVPB ONE (11:45)
--- NOTE | 2019-03-21 12:19 | DS ---
Physical Exam: SUBJECTIVE: Patient seen and examined. Feeling well, ready to go home. Understands need to stay well-hydrated, follow up on Sunday with renal. OBJECTIVE: Vital Signs Period Temp Pulse Resp BP Sys/Bishop Pulse Ox Last 24 Hr 97.7 F-98.6 F 55-81 17-20 103-118/60-86 100-100 PHYSICAL EXAM GENERAL: The patient is awake, alert, and fully oriented, in no acute distress. LUNGS: Breath sounds equal, clear to auscultation bilaterally, no wheezes, no crackles, no accessory muscle use. HEART: Regular rate and rhythm, S1, S2 without murmur, rub or gallop. ABDOMEN: Soft, nontender, nondistended EXTREMITIES: 2+ pulses, warm, well-perfused, no edema. NEUROLOGICAL: Cranial nerves II through XII grossly intact. Normal speech, steady gait LABS Laboratory Results - last 24 hr 03/20/19 03/21/19 03/21/19 06:30 07:34 07:34 Sodium 137 139 Potassium 3.9 4.1 Chloride 108 H 106 Carbon Dioxide 22 27 Anion Gap 7 L 6 L BUN < 5.0 L 3.0 L Creatinine 0.5 L 0.6 Est GFR (CKD-EPI)AfAm 150.52 141.76 Est GFR (CKD-EPI)NonAf 129.87 122.31 Random Glucose 83 83 Calcium 8.2 L 8.8 Phosphorus 3.4 Magnesium 1.7 L Total Bilirubin 0.2 0.5 AST 93 H 59 H ALT 70 H 67 H Alkaline Phosphatase 35 L 36 L Creatine Kinase 4005 H 1735 H Creatine Kinase Index 0.0 0.0 CK-MB (CK-2) 2.2 1.4 Total Protein 5.8 L 6.2 L Albumin 3.3 L 3.5 HOSPITAL COURSE: Date of Admission:03/17/19 Date of Discharge: 03/21/19 Pre hospital course 28 year-old female with a PMH significant for GERD presented to the ED following a syncopal episode. 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 Within about 30 minutes she had an upset stomach and cramping. She had several episodes of diarrhea. She went to sleep and awoke having the need to have a BM. She stood up from the toilet and the next thing she remembered was waking up on the floor. She had small lacerations to her nose and lip and there was blood pooled on the floor. She thinks she lost consciousness for several minutes. Three days ago patient did a vigorous leg workout at the gym after a long period of not exercising. ER course (1) CPK 12,660 (2) AST 199, ALT 65 (3) orthostatic Subsequent hospital course 28 year-old female with a PMH significant for GERD. Admitted for a syncopal episode and on admission found to have rhabdomyolysis. Rhabdomyolysis --multifactorial etiology: low PO intake, vigourous exercise, GI losses after drinking spoiled almond milk --CPK 12,660 on admission, aggressive IV fluids, trended down to 1735 at time of discharge --renal function remained stable Minutes to complete discharge: 35 Discharge Summary Problems reviewed: Yes Reason For Visit: CLOSED HEAD INJUTY/SYNCOPE/DEHYDRATION Current Active Problems Closed head injury (Acute) Dehydration (Acute) Nasal laceration (Acute) Rhabdomyolysis (Acute) Syncope (Acute) Condition: Guarded - Instructions Diet, Activity, Other Instructions: Drink plenty of fluids, stay very well hydrated, and follow up with Dr. Gudino on Sunday to have your CPK level checked. Return to the emergency department for any new or worsening symptoms. Referrals: Molly Cedillo MD [Primary Care Provider] - Disposition: HOME - Home Medications Comprehensive Discharge Medication List: Ambulatory Orders Famotidine [Pepcid -] 40 mg PO DAILY 03/17/19 This patient is new to me today: No Emergency Visit: Yes ED Registration Date: 03/17/19 Care time: The patient presented to the Emergency Department on the above date and was hospitalized for further evaluation of their emergent condition. Critical Care patient: No - Discharge Referral Referred to [facility] No
[2019-03-21 13:53] VITALS: TEMP 97.8
[2019-03-21 14:21] VITALS: BP 108/73; PULSE 76
== END 2019-03-21 15:19 | disposition home or self-care (01) | DRG 558 ==
LOC: FER 14:52 → FM/S 17:56
PROVIDERS: ADMIT Internal Medicine; ATTEND Nurse Practitioner Acute Care
PROC: 09QKXZZ Repair Nasal Mucosa and Soft Tissue, External Approach (ICD-10-PCS; principal; 2019-03-17)
DX: M62.82 Rhabdomyolysis (principal); R55 Syncope and collapse; K21.9 Gastro-esophageal reflux disease without esophagitis; E86.0 Dehydration; R19.7 Diarrhea, unspecified; E87.6 Hypokalemia; E83.39 Other disorders of phosphorus metabolism; E83.42 Hypomagnesemia; M25.562 Pain in left knee; S01.21XA Laceration without foreign body of nose, initial encounter; S01.511A Laceration without foreign body of lip, initial encounter; S09.8XXA Other specified injuries of head, initial encounter; W18.39XA Other fall on same level, initial encounter; Y92.89 Other specified places as the place of occurrence of the external cause
CPT/HCPCS: 36415; 70450-TC; 71046-TC-FY; 73562-TC-LT-FY; 80053; 81003; 81015; 82550; 82553; 83605; 83690; 83735; 84100; 84484; 84703; 85025; 87040; 87045; 87046; 87086; 87177; 87205; 87209; 87324; 87449; 93005; 99285-25; J0131; J7030

== ENCOUNTER 2019-12-19 18:46 | Emergency (ER) | payer BC ==
[2019-12-19 18:56] VITALS: BP 124/95; PULSE 85; TEMP 98.7; BMI 23.3
[2019-12-19] MEDS ORDERED: GLUCAGON 1 MG KIT IVPUSH ONE ×2 (19:17→20:34)
--- NOTE | 2019-12-19 19:17 | PDOC ---
History of Present Illness - General Chief Complaint: Foreign Body (FB) Stated Complaint: FOOD BOLUS Time Seen by Provider: 12/19/19 19:09 History Source: Patient Exam Limitations: No Limitations - History of Present Illness Initial Comments: 12/19/19 20:38 Is a 29-year-old female who comes in complaining of a food bolus of chicken stuck in her esophagus. Patient has history of similar problems in the past. Patient had a surgical procedure done back in 2018 to correct the problem and this said this is the first time since then that she has had an issue. Patient is unable to swallow any of her secretions. Allergies: as per nursing notes Past Medical History: none Social history: Lives with family. No smoking. No alcohol. No illicit drugs. Surgical history: None General: No fevers or chills, no weakness, no weight loss HEENT: No change in vision. No sore throat,. No ear pain, + food bolus in esophagus CardioVascular: no chest discomfort. No shortness of breath Respiratory:No cough, or wheezing. Gastrointestinal: no nausea, vomiting, diarrhea or constipation, No rectal bleeding Genitourinary: No dysuria, hematuria, or frequency Musculoskeletal: No joint or muscle pain or swelling Neurologic: No headache, vertigo, dizziness or loss of consciousness Psychiatric: nor depression Skin: No rashes or easy bruising Endocrine: no increased thirst or abnormal weight change Allergic: no skin or latex allergy All other systems reviewed and normal GENERAL: The patient is awake, alert, and fully oriented, in no acute distress. HEENT:Head is normal with no signs of trauma. Eyes: Pupils equal, round and reactive to light, Ears, and Throat are normal. Neck is supple. No Lymphadenopathy. EXTREMITIES:atraumatic, Normal range of motion, no edema. NEUROLOGICAL: Normal speech, normal gait. PSYCH: Normal mood, normal affect. SKIN: Warm, Dry, normal turgor, no rashes or lesions noted. Assessment and plan: Is a 29-year-old female with a food bolus in her esophagus. Patient given IV the glucagon with some mild relaxation of the esophagus however food bolus does persist and will give second bolus of glucagon if second bolus does not resolve the issue patient will need endoscopy. 12/19/19 21:31 Patient just passed the food bolus and will not require endoscopy as she is able to eat and swallow normally Past History - Medical History Allergies/Adverse Reactions: Allergies Allergy/AdvReac Type Severity Reaction Status Date / Time No Known Allergies Allergy Verified 12/19/19 18:48 Anemia: No Asthma: No Cancer: No Cardiac Disorders: No CVA: No COPD: No CHF: No Dementia: No Diabetes: No GI Disorders: Yes (ACID REFLUX) Disorders: No HTN: No Hypercholesterolemia: No Liver Disease: No Seizures: No Thyroid Disease: No - Surgical History Abdominal Surgery: Yes (esophagus dilation) Appendectomy: No Cardiac Surgery: No Cholecystectomy: No Lung Surgery: No Neurologic Surgery: No Orthopedic Surgery: No - Reproductive History Is Patient Now?: No - Immunization History Immunization Up to Date: Yes - Psycho-Social/Smoking History Smoking Status: No Smoking History: Never smoked Have you smoked in the past 12 months: No Number of Cigarettes Smoked Daily: 0 Information on smoking cessation initiated: No - Substance Abuse Hx (Audit-C & DAST Scrn) How often the patient has a drink containing alcohol: Never Score: In Men: 4 or > Positive; In Women: 3 or > Positive: 0 Screen Result (Pos requires Nsg. Audit-10AR): Negative In the last yr the pt used illegal drug/Rx for NonMed reason: No Score: Yes response is considered Positive: 0 Screen Result (Positive result requires Nsg. DAST-10): Negative *Physical Exam - Vital Signs Last Vital Signs Temp Pulse Resp BP Pulse Ox 98.7 F 85 20 124/95 99 12/19/19 18:47 12/19/19 18:47 12/19/19 18:47 12/19/19 18:47 12/19/19 18:47 ED Treatment Course - LABORATORY CBC & Chemistry Diagram: 12/19/19 19:30 12/19/19 19:26 Discharge - Discharge Information Problems reviewed: Yes Clinical Impression/Diagnosis: Bolus impaction of digestive tract Condition: Stable Disposition: HOME - Admission No - Follow up/Referral - Patient Discharge Instructions Additional Instructions: Follow-up with Dr. Grove. Return to the emergency department immediately with ANY new, persistent or worsening symptoms. Continue any medications as previously prescribed by your physician. You should follow up with your primary doctor as soon as possible regarding today's emergency department visit. . Please make sure your doctor reviews the results of your emergency evaluation. Thank you for coming to the Emergency Department today for your care. It was a pleasure to see you today. Please note that your evaluation is INCOMPLETE until you follow-up with your doctor. - Post Discharge Activity
[2019-12-19] MEDS ORDERED: GLUCAGON 1 MG KIT ONE (19:20)
[2019-12-19 19:49] LABS: BASO % 1.4 % (0-2.0); EOS % 2.7 % (0-4.5); HEMOGLOBIN 14.5 GM/dl (10.7-15.3); LYMPH % 24.5 % (8-40); MCH 29.3 pg (25.7-33.7); MEAN CELL VOLUME 88.8 fl (80-96); MEAN PLT VOLUME 9.1 fl (7.5-11.1); NEUT % 66.4 % (42.8-82.8); PLATELET COUNT 205 K/MM3 (134-434); RBC 4.95 M/mm3 (3.60-5.2); RDW 12.2 % (11.6-15.6); WHITE BLOOD COUNT 9.8 K/mm3 (4.0-10.8)
[2019-12-19 20:02] LABS: BILIRUBIN,TOTAL 0.9 mg/dl (0.2-1); CALCIUM 9.8 mg/dl (8.5-10); CREATININE 0.7 mg/dl (0.55-1.3); POTASSIUM 3.6 mmol/L (3.5-5.1); TOT PROT 8.2 g/dl (6.4-8.2)
== END 2019-12-19 21:37 | disposition home or self-care (01) ==
LOC: FER 18:46
PROC: 3E033NZ Introduction of Analgesics, Hypnotics, Sedatives into Peripheral Vein, Percutaneous Approach (ICD-10-PCS; principal; 2019-12-19)
PROC: 3E033GC Introduction of Other Therapeutic Substance into Peripheral Vein, Percutaneous Approach (ICD-10-PCS; 2019-12-19)
DX: T18.128A Food in esophagus causing other injury, initial encounter (principal)
CPT/HCPCS: 36415; 80053; 85025; 99285-25